=== PATIENT | male | born 1955 | race Caucasian/White ===

== ENCOUNTER 2024-06-15 10:36 | Inpatient (IN) | payer OTHER ==
[2024-06-15 10:55] VITALS: BMI 28.4
[2024-06-15] MEDS ORDERED: ACETAMINOPHEN 325 MG TABLET (FP) PO PRN (11:29)
[2024-06-15] MEDS ORDERED: guaiFENesin 600 MG TABLET.ER (FP) PO PRN (11:29)
[2024-06-15] MEDS ORDERED: MAG HYDROX/AL HYDROX/SIMETH 30 ML UNIT-DOSE CUP PO PRN (11:29)
[2024-06-15] MEDS ORDERED: BENZONATATE 200 MG CAPSULE PO PRN (11:29)
[2024-06-15] MEDS ORDERED: IBUPROFEN 400 MG TABLET (FP) PO PRN (11:29)
[2024-06-15] MEDS ORDERED: NALOXONE (NARCAN) HCL 4 MG/0.1 ML SPRAY NS PRN (11:29)
[2024-06-15] MEDS ORDERED: POLYETHYLENE GLYCOL (HEALTHYLAX) 3350 17 GM PACKET PO PRN (11:29)
[2024-06-15] MEDS ORDERED: MAGNESIUM HYDROX 2400MG/30ML ORAL SUSPENSION 30 ML CUP PO PRN (11:29)
[2024-06-15] MEDS ORDERED: IBUPROFEN 600 MG TABLET (FP) PO PRN (11:29)
[2024-06-15] MEDS ORDERED: LOPERAMIDE HCL 2 MG CAPSULE PO PRN (11:29)
[2024-06-15] MEDS: TUBERCULIN PPD 5 TU/0.1ML VIAL ID ONE (15:37)
[2024-06-15 20:50] LABS: URINE APPEARANCE CLEAR; URINE BILIRUBIN NEGATIVE (NEGATIVE); URINE COLOR YELLOW; URINE GLUCOSE (UA) 1+ (NEGATIVE); URINE KETONE TRACE (NEGATIVE); URINE LEUK ESTERASE NEGATIVE (NEGATIVE); URINE NITRITE NEGATIVE (NEGATIVE); URINE PROTEIN NEGATIVE (NEGATIVE)
[2024-06-15] MEDS: THIAMINE 100 MG TABLET PO SCH (21:37)
[2024-06-15] MEDS: ATORVASTATIN CA 80 MG TABLET (FP) PO SCH (21:37)
[2024-06-15] MEDS: MELATONIN 5 MG TABLETS PO SCH (21:37)
[2024-06-16] MEDS: P-EPHED 60MG/TRIPROLIDI 2.5MG TABLET PO PRN (01:52)
[2024-06-16] MEDS: PANTOPRAZOLE 20 MG TABLET PO SCH (09:16)
[2024-06-16] MEDS: PRENATAL VITAMINS W/ FOLIC ACID TABLET (FP) PO SCH (09:16)
[2024-06-16 12:32] LABS: HEMATOCRIT 39.7 % (35.4-49); HEMOGLOBIN 13.3 GM/dL (11.7-16.9); MCH 31.8 pg (25.7-33.7); MCHC 33.6 g/dl (32.0-35.9); MEAN CELL VOLUME 94.7 fl (80-96); MEAN PLT VOLUME 10.1 fl (7.5-11.1); PLATELET COUNT 150 10^3/uL (134-434); RBC 4.19 M/mm3 (4.00-5.60); RDW 14.3 % (11.9-15.9); WHITE BLOOD COUNT 5.7 K/mm3 (4.0-10.0)
[2024-06-16 12:43] LABS: POTASSIUM 3.4 mmol/L (3.5-5.1)
[2024-06-16 12:44] LABS: CALCIUM 8.4 mg/dL (8.5-10.1)
[2024-06-16 12:45] LABS: BLOOD UREA NITROGEN 17.1 mg/dL (7-18)
[2024-06-16 12:49] LABS: CREATININE 0.8 mg/dL (0.55-1.3)
[2024-06-16 12:50] LABS: BILIRUBIN,TOTAL 0.5 mg/dL (0.2-1)
[2024-06-16] MEDS ORDERED: ATORVASTATIN CA 40 MG TABLET (FP) ONE (21:08)
[2024-06-17] MEDS: AZITHROMYCIN 250 MG TABLET PO ONE (10:18)
[2024-06-17] MEDS: CHLORHEXIDINE GLUCONATE 0.12% 15ML CUP MM SCH (10:19)
[2024-06-17] MEDS: OXYMETAZOLINE 0.05% NASAL SOLUTION 15 ML BOTTLE NS PRN (18:56)
[2024-06-17] MEDS: BENZOCAINE/MENTHOL (CHLORASEPTIC ) LOZENGE MM PRN (19:00)
[2024-06-17] MEDS ORDERED: ATORVASTATIN CA 40 MG TABLET (FP) ONE (21:13)
[2024-06-18] MEDS: AZITHROMYCIN 250 MG TABLET PO SCH (10:05)
[2024-06-18] MEDS ORDERED: ATORVASTATIN CA 40 MG TABLET (FP) ONE (21:27)
[2024-06-19] MEDS ORDERED: ATORVASTATIN CA 40 MG TABLET (FP) ONE (20:46)
[2024-06-20 06:13] VITALS: RESP 16
[2024-06-20] MEDS ORDERED: ATORVASTATIN CA 40 MG TABLET (FP) ONE (20:43)
[2024-06-21] MEDS ORDERED: ATORVASTATIN CA 40 MG TABLET (FP) ONE (21:07)
[2024-06-22] MEDS ORDERED: ATORVASTATIN CA 40 MG TABLET (FP) ONE (20:53)
[2024-06-23] MEDS ORDERED: ATORVASTATIN CA 40 MG TABLET (FP) ONE (21:09)
[2024-06-24] MEDS ORDERED: ATORVASTATIN CA 40 MG TABLET (FP) ONE (21:20)
[2024-06-25 07:09] VITALS: BP 146/79; PULSE 72; TEMP 97.5
[2024-06-25] MEDS: NALOXONE (NYS OPIOID OVERDOSE PROGRAM) 4 MG/0.1 ML SPRAY NS SCH (09:33)
== END 2024-06-25 09:12 | disposition home or self-care (01) | DRG 895 ==
LOC: YASAS 10:36 → Y3NR 12:14 → Y3W 06-16 09:40
PROVIDERS: ADMIT Psychiatry & Neurology Pain Medicine; ATTEND Psychiatry & Neurology Pain Medicine
PROC: HZ42ZZZ Group Counseling for Substance Abuse Treatment, Cognitive-Behavioral (ICD-10-PCS; principal; 2024-06-15)
DX: F10.20 Alcohol dependence, uncomplicated (principal); F14.20 Cocaine dependence, uncomplicated; E78.5 Hyperlipidemia, unspecified; I10 Essential (primary) hypertension; K21.9 Gastro-esophageal reflux disease without esophagitis
CPT/HCPCS: 0241U-QW; 36415; 80053; 80305; 80307; 81003; 82962; 85027; 86780; 87811; 93005; 93010

== ENCOUNTER 2024-07-29 13:15 | Inpatient (IN) | payer OTHER ==
[2024-07-29 14:25] VITALS: BMI 29.5
[2024-07-29] MEDS ORDERED: POLYETHYLENE GLYCOL (HEALTHYLAX) 3350 17 GM PACKET PO PRN (17:14)
[2024-07-29] MEDS ORDERED: IBUPROFEN 600 MG TABLET (FP) PO PRN (17:14)
[2024-07-29] MEDS ORDERED: LOPERAMIDE HCL 2 MG CAPSULE PO PRN (17:14)
[2024-07-29] MEDS ORDERED: hydrOXYzine PAMOATE 25 MG CAPSULE (FP) PO PRN (17:14)
[2024-07-29] MEDS ORDERED: guaiFENesin 600 MG TABLET.ER (FP) PO PRN (17:14)
[2024-07-29] MEDS ORDERED: MAGNESIUM HYDROX 2400MG/30ML ORAL SUSPENSION 30 ML CUP PO PRN (17:14)
[2024-07-29] MEDS ORDERED: IBUPROFEN 400 MG TABLET (FP) PO PRN (17:14)
[2024-07-29] MEDS ORDERED: BENZONATATE 200 MG CAPSULE PO PRN (17:14)
[2024-07-29] MEDS ORDERED: NALOXONE (NARCAN) HCL 4 MG/0.1 ML SPRAY NS PRN (17:14)
[2024-07-29] MEDS ORDERED: ACETAMINOPHEN 325 MG TABLET (FP) PO PRN (17:14)
[2024-07-29] MEDS ORDERED: MAG HYDROX/AL HYDROX/SIMETH 30 ML UNIT-DOSE CUP PO PRN (17:14)
[2024-07-29] MEDS: PANTOPRAZOLE 20 MG TABLET PO SCH (17:57)
[2024-07-29] MEDS: PRENATAL VITAMINS W/ FOLIC ACID TABLET (FP) PO SCH (17:57)
[2024-07-29] MEDS: MELATONIN 5 MG TABLETS PO SCH (21:13)
[2024-07-29] MEDS: ATORVASTATIN CA 80 MG TABLET (FP) PO SCH (21:13)
[2024-07-29] MEDS ORDERED: ATORVASTATIN CA 40 MG TABLET (FP) ONE (21:13)
[2024-07-29] MEDS: THIAMINE 100 MG TABLET PO SCH (21:13)
[2024-07-30 11:24] LABS: HEMATOCRIT 42.5 % (35.4-49); HEMOGLOBIN 14.5 GM/dL (11.7-16.9); MCH 32.2 pg (25.7-33.7); MCHC 34.2 g/dl (32.0-35.9); MEAN CELL VOLUME 94.3 fl (80-96); MEAN PLT VOLUME 9.7 fl (7.5-11.1); PLATELET COUNT 145 10^3/uL (134-434); RBC 4.51 M/mm3 (4.00-5.60); RDW 14.3 % (11.9-15.9)
[2024-07-30 11:26] LABS: CHLORIDE 105 mmol/L (98-107); POTASSIUM 3.9 mmol/L (3.5-5.1); SODIUM 140 mmol/L (136-145)
[2024-07-30 11:34] LABS: ALBUMIN 3.3 g/dl (3.4-5.0); ANION GAP 3 mmol/L (4-13); BLOOD UREA NITROGEN 16.1 mg/dL (7-18); CALCIUM 8.8 mg/dL (8.5-10.1); CO2 32 mmol/L (21-32); GLUCOSE,RANDOM 121 mg/dL (74-106); SGPT/ALT 27 U/L (13-61)
[2024-07-30 11:35] LABS: SGOT/AST 42 U/L (15-37)
[2024-07-30 11:36] LABS: TOT PROT 6.4 g/dl (6.4-8.2)
[2024-07-30 11:37] LABS: ALK PHOS 53 U/L (45-117)
[2024-07-30 12:00] LABS: SYPHILIS W/ RPR CONF NON-REACTIVE (NONREACTIVE)
[2024-07-30] MEDS ORDERED: ATORVASTATIN CA 40 MG TABLET (FP) ONE (20:44)
[2024-07-31 11:06] LABS: PH,URINE 7.5 (5.0-8.0); URINE APPEARANCE CLEAR; URINE BILIRUBIN NEGATIVE (NEGATIVE); URINE COLOR YELLOW; URINE GLUCOSE (UA) NEGATIVE (NEGATIVE); URINE KETONE NEGATIVE (NEGATIVE); URINE LEUK ESTERASE NEGATIVE (NEGATIVE); URINE NITRITE NEGATIVE (NEGATIVE); URINE PROTEIN NEGATIVE (NEGATIVE)
[2024-07-31] MEDS ORDERED: ATORVASTATIN CA 40 MG TABLET (FP) ONE ×2 (20:59)
[2024-08-01] MEDS ORDERED: ATORVASTATIN CA 40 MG TABLET (FP) ONE (20:29)
[2024-08-02] MEDS ORDERED: LORATADINE 10 MG TABLET PO PRN (15:25)
[2024-08-02] MEDS ORDERED: ATORVASTATIN CA 40 MG TABLET (FP) ONE (21:07)
[2024-08-02] MEDS: FLUTICASONE PROP 0.05% 16 GM NASAL SPRAY NS PRN (21:09)
[2024-08-02] MEDS ORDERED: MELATONIN 5 MG TABLETS PO PRN (22:00)
[2024-08-02 22:14] VITALS: RESP 16
[2024-08-03] MEDS ORDERED: ATORVASTATIN CA 40 MG TABLET (FP) ONE (21:28)
[2024-08-04] MEDS ORDERED: ATORVASTATIN CA 40 MG TABLET (FP) ONE (20:57)
[2024-08-05] MEDS: BENZOCAINE/MENTHOL (CHLORASEPTIC ) LOZENGE MM PRN (15:59)
[2024-08-05] MEDS ORDERED: ATORVASTATIN CA 40 MG TABLET (FP) ONE (21:12)
[2024-08-06 05:34] VITALS: BP 146/81; PULSE 75; TEMP 97.8
== END 2024-08-06 10:05 | disposition home or self-care (01) | DRG 895 ==
LOC: YASAS 13:15 → Y3W 16:51
PROVIDERS: ADMIT Psychiatry & Neurology Pain Medicine; ATTEND Psychiatry & Neurology Pain Medicine
PROC: HZ42ZZZ Group Counseling for Substance Abuse Treatment, Cognitive-Behavioral (ICD-10-PCS; principal; 2024-07-29)
DX: F14.20 Cocaine dependence, uncomplicated (principal); F10.20 Alcohol dependence, uncomplicated; F17.210 Nicotine dependence, cigarettes, uncomplicated; E78.5 Hyperlipidemia, unspecified; K21.9 Gastro-esophageal reflux disease without esophagitis; J98.8 Other specified respiratory disorders
CPT/HCPCS: 36415; 80053; 80305; 80307; 81003; 85027; 86780; 86803; 87811; 93005; 93010